=== PATIENT | male | born 1965 | race Caucasian/White ===

== ENCOUNTER 2020-02-14 13:57 | Inpatient (IN) | payer MEDICAID, OTHER ==
[~2020-02-14] VITALS: Ht 188 cm; Wt 91.5 kg
[2020-02-14] MEDS ORDERED: ONDANSETRON 2MG/ML, 2ML IVPush ONE (14:30)
[2020-02-14] MEDS ORDERED: SODIUM CHLORIDE FLUSH 10ML SYR IVF ONE (14:30)
[2020-02-14] MEDS ORDERED: SODIUM CHLORIDE 0.9% 1,000ML IVBOLUS ONE (14:30)
[2020-02-14] MEDS ORDERED: PANTOPRAZOLE 40 MG IV IVPush ONE (14:30)
[2020-02-14] MEDS ORDERED: PANTOPRAZOLE 80 MG in SODIUM CHLORIDE 0.9% 50 ML IVPB ONE (14:36)
[2020-02-14] MEDS ORDERED: PANTOPRAZOLE 80 MG in SODIUM CHLORIDE 0.9% 100 ML IV SCH (14:36)
[2020-02-14] MEDS ORDERED: MORPHINE SULFATE 4 MG/ML, 1ML ONE ×2 (14:43→16:14)
[2020-02-14] MEDS ORDERED: ONDANSETRON 2MG/ML, 2ML ONE (14:43)
[2020-02-14 14:51] LABS: BASOPHILS # (AUTO) 0.04 x10^3/uL (0-0.1); BASOPHILS % (AUTO) 0 % (0-1); EOSINOPHILS # (AUTO) 0.11 x10^3/uL (0-0.4); EOSINOPHILS % (AUTO) 1 % (1-7); LYMPHOCYTES # (AUTO) 2.63 x10^3/uL (1-3.4); LYMPHOCYTES % (AUTO) 25 % (22-44); MD NO; MEAN CORPUSCULAR HEMOGLOBIN 31.3 pg (27.5-34.5); MONOCYTES # (AUTO) 0.86 x10^3/uL (0.2-0.8); MONOCYTES % (AUTO) 8 % (2-9); NEUTROPHILS # (AUTO) 6.81 x10^3/uL (1.8-6.8); NEUTROPHILS % (AUTO) 65 % (42-75); PLATELET COUNT 424 x10^3/uL (130-400); RED BLOOD COUNT 3.79 x10^6/uL (4.38-5.82); RED CELL DISTRIBUTION WIDTH 13.2 % (9.4-14.8)
[2020-02-14 15:01] LABS: ALANINE AMINOTRANSFERASE 25 U/L (12-78); ALBUMIN 2.9 g/dL (3.4-5.0); ANION GAP 7 mmol/L (5-15); CALCIUM 9.8 mg/dL (8.5-10.1); CHLORIDE 100 mmol/L (98-107)
[2020-02-14 15:03] LABS: ALKALINE PHOSPHATASE 40 U/L (45-117); BILIRUBIN,TOTAL 0.5 mg/dL (0.2-1.0); TOTAL PROTEIN 7.1 g/dL (6.4-8.2)
[2020-02-14 15:12] LABS: INTERNATIONAL NORMALIZED RATIO 1.13 (0.93-1.1); PROTHROMBIN TIME 11.7 Seconds (9.6-11.5)
[2020-02-14] MEDS: MORPHINE SULFATE 4 MG/ML, 1ML IVPush PRN ×2 (15:14→16:17)
--- NOTE | 2020-02-14 15:16 | NUR ---
IV STARTED. PT MEDICATED PER EMAR, ORDERED FLUIDS INFUSING. PT IN HOSPITAL GOWN. PT ON VITALS MONITORS. PT GOING TO CT AT THIS TIME.
[2020-02-14] MEDS ORDERED: OMNIPAQUE 350 MG/ML, 100ML BOTTLE ONE (15:28)
[2020-02-14] MEDS ORDERED: ONDANSETRON 2MG/ML, 2ML IVPush PRN (16:30)
[2020-02-14] MEDS ORDERED: POLYETHYLENE GLYCOL 17 GM PACKET PO PRN (16:30)
[2020-02-14] MEDS ORDERED: ONDANSETRON ODT 4 MG PO PRN (16:30)
[2020-02-14] MEDS ORDERED: DOCUSATE 100 MG CAPSULE PO PRN (16:30)
[2020-02-14] MEDS ORDERED: ACETAMINOPHEN 325 MG TABLET PO PRN (16:30)
--- NOTE | 2020-02-14 16:32 | NUR ---
PT UNSURE IF HE TAKES ATENOLOL OR LISINOPRIL AT HOME FOR BLOOD PRESSURE. UNABLE TO UPDATE MED REC COMPLETELY PT CAN'T RECALL HOME MEDS.
[2020-02-14] MEDS ORDERED: MULT-658 PO (16:33)
--- NOTE | 2020-02-14 16:53 | NUR ---
REPORT GIVEN TO JERED STOCK FOR ROOM 342
[2020-02-14] MEDS: PANTOPRAZOLE 80 MG in SODIUM CHLORIDE 0.9% 100 ML IV SCH (18:37)
[2020-02-14] MEDS: LACTATED RINGERS 1,000 ML IV SCH ×2 (18:42→20:23)
[2020-02-14] MEDS: morphine SULFATE 10 MG/ML, 1ML IVPush PRN ×3 (19:37→23:06)
[2020-02-14 19:50] VITALS: BP 125/79
[2020-02-14] MEDS: NICOTINE 21 MG/24 HR PATCH.TD24 TD SCH ×2 (20:30→23:07)
[2020-02-14] MEDS ORDERED: LOSA25TA12 PO (22:45)
[2020-02-15 00:27] VITALS: BP 110/70
[2020-02-15] MEDS: PANTOPRAZOLE 80 MG in SODIUM CHLORIDE 0.9% 100 ML IV SCH ×4 (01:59→23:23)
[2020-02-15] MEDS: morphine SULFATE 10 MG/ML, 1ML IVPush PRN ×6 (02:00→23:10)
[2020-02-15 05:09] LABS: BASOPHILS % (AUTO) 1 % (0-1); EOSINOPHILS % (AUTO) 3 % (1-7); LYMPHOCYTES % (AUTO) 44 % (22-44); MEAN CORPUSCULAR HEMOGLOBIN 32.1 pg (27.5-34.5); MEAN PLATELET VOLUME 8.3 fL (7.4-10.4); MONOCYTES % (AUTO) 7 % (2-9); NEUTROPHILS % (AUTO) 46 % (42-75); PLATELET COUNT 323 x10^3/uL (130-400); RED BLOOD COUNT 3.09 x10^6/uL (4.38-5.82); RED CELL DISTRIBUTION WIDTH 13.4 % (9.4-14.8)
[2020-02-15 05:14] LABS: ALBUMIN 2.3 g/dL (3.4-5.0); ANION GAP 5 mmol/L (5-15); CALCIUM 8.4 mg/dL (8.5-10.1); CHLORIDE 108 mmol/L (98-107)
[2020-02-15 05:18] LABS: % IRON SATURATION 29 % (20-55); ALANINE AMINOTRANSFERASE 16 U/L (12-78); ALKALINE PHOSPHATASE 31 U/L (45-117); BILIRUBIN,TOTAL 0.4 mg/dL (0.2-1.0); CREATININE 1.42 mg/dL (0.7-1.3); IRON LEVEL 50 mcg/dL (65-175); TOTAL IRON BINDING CAPACITY 173 mcg/dL (250-450); TOTAL PROTEIN 5.6 g/dL (6.4-8.2)
[2020-02-15] MEDS: LACTATED RINGERS 1,000 ML IV SCH ×2 (05:36→16:33)
[2020-02-15 07:22] VITALS: BP 103/68
[2020-02-15 09:03] LABS: MD NO
[2020-02-15] MEDS ORDERED: PROMETHAZINE 25 MG/ML, 1ML IVPush PRN (10:00)
[2020-02-15] MEDS ORDERED: HYDROmorphone 1 MG/ML, 1ML INJ IVPush PRN (10:00)
[2020-02-15] MEDS ORDERED: OXYcodone 5 MG/5 ML ORAL.SOL UDC PO PRN (10:00)
[2020-02-15] MEDS ORDERED: FENTANYL PF 100 MCG/2ML IV PRN (10:00)
[2020-02-15] MEDS ORDERED: LABETALOL 5MG/ML, 20ML IV PRN (10:00)
[2020-02-15] MEDS ORDERED: EPHEDRINE 50 MG/ML, 1ML IVPush PRN (10:00)
[2020-02-15] MEDS ORDERED: MEPERIDINE/PF 25MG/0.5ML IVPush PRN (10:00)
[2020-02-15] MEDS ORDERED: ACETAMINOPHEN 325 MG TABLET PO PRN (10:00)
[2020-02-15] MEDS ORDERED: hydrALAzine 20 MG/ML, 1ML IV PRN (10:00)
[2020-02-15] MEDS ORDERED: ONDANSETRON 2MG/ML, 2ML IVPush PRN (10:00)
[2020-02-15] MEDS ORDERED: CHLORHEXIDINE 15 ML UDC ONE (10:47)
[2020-02-15] MEDS ORDERED: CHLORHEXIDINE 15 ML UDC MM ONE (11:00)
[2020-02-15] MEDS ORDERED: PROPOFOL 50 ML ONE (11:04)
[2020-02-15] MEDS ORDERED: HYDROmorphone 1 MG/ML, 1ML INJ ONE (11:50)
[2020-02-15 12:16] VITALS: BP 95/66
[2020-02-15] MEDS: OMEPRAZOLE 20 MG CAPSULE.DR PO SCH (16:36)
[2020-02-15] MEDS: NICOTINE 21 MG/24 HR PATCH.TD24 TD SCH (19:56)
[2020-02-15 20:13] VITALS: BP 104/65
[2020-02-15 21:58] LABS: CREATININE,URINE RANDOM 82.2 mg/dL
[2020-02-16 00:27] VITALS: BP 112/74
[2020-02-16] MEDS: LACTATED RINGERS 1,000 ML IV SCH (02:46)
[2020-02-16] MEDS: morphine SULFATE 10 MG/ML, 1ML IVPush PRN ×2 (02:47→07:40)
[2020-02-16 05:35] LABS: BASOPHILS % (AUTO) 0 % (0-1); EOSINOPHILS % (AUTO) 3 % (1-7); LYMPHOCYTES % (AUTO) 32 % (22-44); MEAN CORPUSCULAR HEMOGLOBIN 31.5 pg (27.5-34.5); MEAN CORPUSCULAR HGB CONC 33.8 g/dL (33.2-36.2); MEAN PLATELET VOLUME 8.4 fL (7.4-10.4); MONOCYTES % (AUTO) 6 % (2-9); NEUTROPHILS % (AUTO) 59 % (42-75); PLATELET COUNT 321 x10^3/uL (130-400); RED BLOOD COUNT 3.05 x10^6/uL (4.38-5.82)
[2020-02-16 05:39] LABS: ANION GAP 5 mmol/L (5-15); CALCIUM 8.3 mg/dL (8.5-10.1); CHLORIDE 109 mmol/L (98-107)
[2020-02-16 05:41] LABS: CREATININE 1.48 mg/dL (0.7-1.3)
[2020-02-16 05:53] LABS: MD NO
[2020-02-16] MEDS: OMEPRAZOLE 20 MG CAPSULE.DR PO SCH (07:36)
[2020-02-16 07:43] VITALS: BP 130/81
[2020-02-16] MEDS: PANTOPRAZOLE 80 MG in SODIUM CHLORIDE 0.9% 100 ML IV SCH (10:06)
[2020-02-16] MEDS ORDERED: OMEP-110 PO (11:05)
[2020-02-16] MEDS ORDERED: SENN1TAB94 PO (11:05)
[2020-02-16] MEDS ORDERED: HYDR-3240 PO (11:05)
[2020-02-16] MEDS ORDERED: SUCR1TAB33 PO (11:05)
[2020-02-16] MEDS ORDERED: HYDROcodone/APAP 5/325 TABLET PO PRN (11:30)
[2020-02-16 14:15] VITALS: BP 113/71
== END 2020-02-16 14:55 | disposition home or self-care (01) | DRG 381 ==
LOC: ED 14:58 → EDIP 16:13 → 3N 18:09 → DCLOUNGE 02-16 14:55
PROVIDERS: ADMIT Family Medicine; ATTEND Family Medicine
PROC: 0DB68ZX Excision of Stomach, Via Natural or Artificial Opening Endoscopic, Diagnostic (ICD-10-PCS; principal; 2020-02-15 10:30)
DX: K22.11 Ulcer of esophagus with bleeding (principal); D62 Acute posthemorrhagic anemia; N17.9 Acute kidney failure, unspecified; K27.4 Chronic or unspecified peptic ulcer, site unspecified, with hemorrhage; I10 Essential (primary) hypertension; L40.9 Psoriasis, unspecified; Z20.828 Contact with and (suspected) exposure to other viral communicable diseases; R00.0 Tachycardia, unspecified
CPT/HCPCS: 36415; 74177; 80048; 80053; 82570; 82728; 83540; 83550; 83605; 83690; 84300; 85014; 85018; 85025; 85610; 86850; 86900; 87635; 88305; 93005; G0378; J1170; J2405; J2704; Q9967; C9113; J2270; J7030; J7120

== ENCOUNTER 2020-04-22 12:13 | Inpatient (IN) | payer MEDICAID ==
[~2020-04-22] VITALS: Ht 188 cm; Wt 95.5 kg
[~2020-04-22 12:13] MED LIST: HYDR-3240 PO; LOSA25TA12 PO; MULT-658 PO; OMEP-110 PO; SENN1TAB94 PO; SUCR1TAB33 PO
[2020-04-22 13:25] LABS: ALANINE AMINOTRANSFERASE 21 U/L (12-78); ALBUMIN 3.7 g/dL (3.4-5.0); ANION GAP 6 mmol/L (5-15); CALCIUM 11.5 mg/dL (8.5-10.1); CHLORIDE 103 mmol/L (98-107); CREATININE 1.59 mg/dL (0.7-1.3)
[2020-04-22 13:27] LABS: ALKALINE PHOSPHATASE 39 U/L (45-117); BILIRUBIN,TOTAL 0.5 mg/dL (0.2-1.0); TOTAL PROTEIN 8.5 g/dL (6.4-8.2)
--- NOTE | 2020-04-22 13:29 | NUR ---
Pt walked back from triage with chief complain to bloody/black stool this am.
[2020-04-22] MEDS ORDERED: ONDANSETRON 2MG/ML, 2ML ONE (13:59)
[2020-04-22] MEDS ORDERED: MORPHINE SULFATE 4 MG/ML, 1ML ONE ×3 (13:59→17:45)
[2020-04-22] MEDS ORDERED: ONDANSETRON 2MG/ML, 2ML IVPush ONE (14:00)
[2020-04-22] MEDS ORDERED: SODIUM CHLORIDE 0.9% 1,000ML IVBOLUS ONE (14:00)
[2020-04-22] MEDS: MORPHINE SULFATE 4 MG/ML, 1ML IVPush PRN ×2 (14:12→15:27)
[2020-04-22 14:13] LABS: BASOPHILS % (AUTO) 0 % (0-1); EOSINOPHILS % (AUTO) 2 % (1-7); LYMPHOCYTES % (AUTO) 17 % (22-44); MEAN CORPUSCULAR HEMOGLOBIN 31.5 pg (27.5-34.5); MEAN CORPUSCULAR HGB CONC 33.4 g/dL (33.2-36.2); MEAN PLATELET VOLUME 8.6 fL (7.4-10.4); MONOCYTES % (AUTO) 7 % (2-9); NEUTROPHILS % (AUTO) 74 % (42-75); PLATELET COUNT 519 x10^3/uL (130-400); RED BLOOD COUNT 4.02 x10^6/uL (4.38-5.82); RED CELL DISTRIBUTION WIDTH 15.1 % (9.4-14.8)
[2020-04-22 14:17] LABS: INTERNATIONAL NORMALIZED RATIO 1.1 (0.93-1.1); MD NO; PROTHROMBIN TIME 11.7 Seconds (9.6-11.5)
--- NOTE | 2020-04-22 14:30 | NUR ---
IV PLACED, MEDICATED PER ORDERS, VSS
[2020-04-22] MEDS ORDERED: PANTOPRAZOLE 80 MG in SODIUM CHLORIDE 0.9% 100 ML IV SCH (15:00)
[2020-04-22] MEDS ORDERED: PANTOPRAZOLE 80 MG in SODIUM CHLORIDE 0.9% 50 ML IVPB ONE (15:00)
[2020-04-22] MEDS ORDERED: SODIUM CHLORIDE FLUSH 10ML SYR IVF ONE (15:00)
--- NOTE | 2020-04-22 15:32 | NUR ---
MEDICATED FOR PAIN, PROTONIX GTT INFUSING
[2020-04-22] MEDS ORDERED: LABETALOL 5MG/ML, 20ML ONE (16:16)
[2020-04-22] MEDS ORDERED: LABETALOL 5MG/ML, 20ML IVPush ONE (16:30)
[2020-04-22] MEDS ORDERED: ONDANSETRON 2MG/ML, 2ML IVPush PRN (17:30)
[2020-04-22] MEDS ORDERED: hydrALAzine 20 MG/ML, 1ML IVPush PRN (17:30)
[2020-04-22] MEDS ORDERED: LABETALOL 5MG/ML, 20ML IVPush PRN (17:30)
[2020-04-22] MEDS ORDERED: SODIUM CHLORIDE 0.9% 1,000 ML IV ONE (17:30)
[2020-04-22] MEDS ORDERED: ENALAPRILAT 1.25 MG/ML, 2ML IVPush PRN (17:30)
[2020-04-22] MEDS: morphine SULFATE 10 MG/ML, 1ML IVPush PRN ×2 (17:58→22:01)
[2020-04-22] MEDS ORDERED: SODIUM CHLORIDE FLUSH 10ML SYR IVF PRN (18:00)
--- NOTE | 2020-04-22 18:19 | NUR ---
PT STATES PAIN IS BETTER, RESTING COMFORTABLE. VSS
--- NOTE | 2020-04-22 18:38 | NUR ---
REPORT TO ARA. SECOND IV PLACED. READY FOR TRANSFER
[2020-04-22 20:57] VITALS: BP 147/90
[2020-04-22] MEDS: LACTATED RINGERS 1,000 ML IV SCH (22:12)
[2020-04-22] MEDS: PANTOPRAZOLE 80 MG in SODIUM CHLORIDE 0.9% 100 ML IV SCH (22:12)
[2020-04-23] MEDS: morphine SULFATE 10 MG/ML, 1ML IVPush PRN ×7 (01:59→21:24)
[2020-04-23 02:27] VITALS: BP 113/75
[2020-04-23 05:58] LABS: BASOPHILS % (AUTO) 0 % (0-1); EOSINOPHILS % (AUTO) 7 % (1-7); LYMPHOCYTES % (AUTO) 30 % (22-44); MEAN CORPUSCULAR HEMOGLOBIN 31.7 pg (27.5-34.5); MEAN PLATELET VOLUME 8.4 fL (7.4-10.4); MONOCYTES % (AUTO) 8 % (2-9); NEUTROPHILS % (AUTO) 55 % (42-75); PLATELET COUNT 334 x10^3/uL (130-400); RED BLOOD COUNT 3.08 x10^6/uL (4.38-5.82); RED CELL DISTRIBUTION WIDTH 15.1 % (9.4-14.8)
[2020-04-23 05:59] LABS: MD NO
[2020-04-23 06:18] LABS: ANION GAP 3 mmol/L (5-15); CALCIUM 9.3 mg/dL (8.5-10.1); CHLORIDE 108 mmol/L (98-107); CREATININE 1.32 mg/dL (0.7-1.3)
[2020-04-23 06:49] VITALS: BP 106/70
[2020-04-23] MEDS: PANTOPRAZOLE 80 MG in SODIUM CHLORIDE 0.9% 100 ML IV SCH ×2 (08:57→18:43)
[2020-04-23] MEDS ORDERED: ONDANSETRON 2MG/ML, 2ML IVPush PRN (11:00)
[2020-04-23] MEDS ORDERED: MIDAZOLAM 1 MG/ML, 2ML IV PRN (11:00)
[2020-04-23] MEDS ORDERED: MEPERIDINE/PF 25MG/0.5ML IVPush PRN (11:00)
[2020-04-23] MEDS ORDERED: ACETAMINOPHEN 325 MG TABLET PO PRN (11:00)
[2020-04-23] MEDS ORDERED: FENTANYL PF 100 MCG/2ML IV PRN (11:00)
[2020-04-23] MEDS ORDERED: OXYcodone 5 MG/5 ML ORAL.SOL UDC PO PRN (11:00)
[2020-04-23] MEDS ORDERED: PROPOFOL 10 MG/ML, 20ML ONE (11:17)
[2020-04-23] MEDS ORDERED: morphine SULFATE 10 MG/ML, 1ML ONE (12:05)
[2020-04-23 12:47] VITALS: BP 116/77
[2020-04-23] MEDS ORDERED: OMNIPAQUE 350 MG/ML, 100ML BOTTLE ONE (13:35)
[2020-04-23 13:54] VITALS: BP 109/72
[2020-04-23] MEDS: NICOTINE 14MG/24 HR PATCH.TD24 TD SCH (18:54)
[2020-04-23 20:18] VITALS: BP 110/69
[2020-04-23] MEDS: LACTATED RINGERS 1,000 ML IV SCH (21:24)
[2020-04-24] MEDS: morphine SULFATE 10 MG/ML, 1ML IVPush PRN ×8 (00:27→23:34)
[2020-04-24 00:48] VITALS: BP 119/82
[2020-04-24] MEDS: PANTOPRAZOLE 80 MG in SODIUM CHLORIDE 0.9% 100 ML IV SCH (03:52)
[2020-04-24 05:29] LABS: ANION GAP 3 mmol/L (5-15); CALCIUM 8.7 mg/dL (8.5-10.1); CHLORIDE 109 mmol/L (98-107)
[2020-04-24 05:32] LABS: BASOPHILS % (AUTO) 1 % (0-1); EOSINOPHILS % (AUTO) 8 % (1-7); LYMPHOCYTES % (AUTO) 25 % (22-44); MEAN CORPUSCULAR HEMOGLOBIN 31.5 pg (27.5-34.5); MEAN CORPUSCULAR HGB CONC 33.7 g/dL (33.2-36.2); MEAN PLATELET VOLUME 8.8 fL (7.4-10.4); MONOCYTES % (AUTO) 8 % (2-9); NEUTROPHILS % (AUTO) 58 % (42-75); PLATELET COUNT 309 x10^3/uL (130-400); RED BLOOD COUNT 3.33 x10^6/uL (4.38-5.82); RED CELL DISTRIBUTION WIDTH 15.1 % (9.4-14.8)
[2020-04-24 05:39] LABS: MD NO
[2020-04-24 07:51] VITALS: BP 110/68
[2020-04-24 12:56] VITALS: BP 100/63
[2020-04-24] MEDS: PANTOPRAZOLE 40 MG IV IVPush SCH (15:25)
[2020-04-24] MEDS: LACTATED RINGERS 1,000 ML IV SCH (16:33)
[2020-04-24] MEDS: NICOTINE 14MG/24 HR PATCH.TD24 TD SCH (18:26)
[2020-04-24 19:55] VITALS: BP 116/77
[2020-04-25 02:13] VITALS: BP 97/62
[2020-04-25] MEDS: morphine SULFATE 10 MG/ML, 1ML IVPush PRN ×6 (02:40→21:03)
[2020-04-25] MEDS: PANTOPRAZOLE 40 MG IV IVPush SCH ×2 (02:40→15:06)
[2020-04-25 05:32] LABS: BASOPHILS % (AUTO) 0 % (0-1); EOSINOPHILS % (AUTO) 8 % (1-7); LYMPHOCYTES % (AUTO) 32 % (22-44); MEAN CORPUSCULAR HEMOGLOBIN 32.4 pg (27.5-34.5); MEAN CORPUSCULAR HGB CONC 34.4 g/dL (33.2-36.2); MEAN PLATELET VOLUME 8.6 fL (7.4-10.4); MONOCYTES % (AUTO) 10 % (2-9); NEUTROPHILS % (AUTO) 51 % (42-75); PLATELET COUNT 326 x10^3/uL (130-400); RED BLOOD COUNT 3.02 x10^6/uL (4.38-5.82); RED CELL DISTRIBUTION WIDTH 14.6 % (9.4-14.8)
[2020-04-25 05:38] LABS: ANION GAP 3 mmol/L (5-15); CALCIUM 8.6 mg/dL (8.5-10.1); CHLORIDE 109 mmol/L (98-107)
[2020-04-25 05:39] LABS: CREATININE 1.51 mg/dL (0.7-1.3)
[2020-04-25 05:40] LABS: MD NO
[2020-04-25 07:36] VITALS: BP 119/76
[2020-04-25] MEDS: LORazepam 2 MG/ML, 1ML IVPush PRN ×4 (09:28→22:16)
[2020-04-25] MEDS: LACTATED RINGERS 1,000 ML IV SCH ×2 (10:34→18:46)
[2020-04-25 13:04] VITALS: BP 128/85
[2020-04-25] MEDS: NICOTINE 14MG/24 HR PATCH.TD24 TD SCH (18:01)
[2020-04-25 21:10] VITALS: BP 142/94
[2020-04-26 02:43] VITALS: BP 144/91
[2020-04-26] MEDS: morphine SULFATE 10 MG/ML, 1ML IVPush PRN ×3 (02:56→18:00)
[2020-04-26] MEDS: PANTOPRAZOLE 40 MG IV IVPush SCH ×2 (03:00→15:53)
[2020-04-26] MEDS: LACTATED RINGERS 1,000 ML IV SCH (05:05)
[2020-04-26] MEDS: LORazepam 2 MG/ML, 1ML IVPush PRN ×2 (05:09→09:38)
[2020-04-26 05:44] LABS: BASOPHILS % (AUTO) 1 % (0-1); EOSINOPHILS % (AUTO) 7 % (1-7); LYMPHOCYTES % (AUTO) 27 % (22-44); MEAN CORPUSCULAR HEMOGLOBIN 31.9 pg (27.5-34.5); MEAN CORPUSCULAR HGB CONC 34.2 g/dL (33.2-36.2); MEAN PLATELET VOLUME 8.4 fL (7.4-10.4); MONOCYTES % (AUTO) 8 % (2-9); NEUTROPHILS % (AUTO) 57 % (42-75); PLATELET COUNT 313 x10^3/uL (130-400); RED BLOOD COUNT 3.08 x10^6/uL (4.38-5.82); RED CELL DISTRIBUTION WIDTH 14.9 % (9.4-14.8)
[2020-04-26 05:48] LABS: MD NO
[2020-04-26 06:08] LABS: ALBUMIN 2.4 g/dL (3.4-5.0); ANION GAP 5 mmol/L (5-15); CALCIUM 8.4 mg/dL (8.5-10.1); CHLORIDE 109 mmol/L (98-107); CREATININE 1.36 mg/dL (0.7-1.3)
[2020-04-26 07:35] VITALS: BP 116/73
[2020-04-26] MEDS ORDERED: FENTANYL PF 250 MCG/5ML ONE (09:46)
[2020-04-26] MEDS ORDERED: MIDAZOLAM 1 MG/ML, 2ML ONE (09:46)
[2020-04-26] MEDS ORDERED: EPINEPHRINE 1 MG/ML, 1ML ONE (10:23)
[2020-04-26] MEDS ORDERED: BUPIVACAINE/PF 0.25% ONE (10:23)
[2020-04-26] MEDS ORDERED: CHLORHEXIDINE 15 ML UDC MM ONE (10:30)
[2020-04-26] MEDS ORDERED: PROPOFOL 10 MG/ML, 20ML ONE (11:03)
[2020-04-26] MEDS ORDERED: SUCCINYLCHOLINE 20 MG/ML, 10ML ONE (11:03)
[2020-04-26] MEDS ORDERED: CEFAZOLIN 1,000 MG ONE (11:03)
[2020-04-26] MEDS ORDERED: ONDANSETRON 2MG/ML, 2ML ONE (11:03)
[2020-04-26] MEDS ORDERED: DEXAMETHASONE 4 MG/ML, 1ML ONE (11:03)
[2020-04-26] MEDS ORDERED: ROCURONIUM 10 MG/ML,10ML ONE (11:03)
[2020-04-26] MEDS ORDERED: SUGAMMADEX 200 MG/2 ML IVPush ONE (11:03)
[2020-04-26] MEDS ORDERED: hydrALAzine 20 MG/ML, 1ML IV PRN (12:00)
[2020-04-26] MEDS ORDERED: ALBUTEROL SULFATE 2.5 MG/3 ML NPPB PRN (12:00)
[2020-04-26] MEDS ORDERED: MEPERIDINE/PF 25MG/0.5ML IVPush PRN (12:00)
[2020-04-26] MEDS ORDERED: PROMETHAZINE 25 MG/ML, 1ML IV PRN (12:00)
[2020-04-26] MEDS ORDERED: LABETALOL 5MG/ML, 20ML IV PRN (12:00)
[2020-04-26] MEDS ORDERED: KETOROLAC 30 MG/1 ML IV PRN (12:00)
[2020-04-26] MEDS ORDERED: OXYcodone 5 MG/5 ML ORAL.SOL UDC PO PRN (12:00)
[2020-04-26] MEDS ORDERED: ONDANSETRON 2MG/ML, 2ML IVPush PRN (12:00)
[2020-04-26] MEDS ORDERED: DIAZEPAM 5 MG/ML, 2ML IV PRN ×2 (12:00)
[2020-04-26] MEDS ORDERED: FENTANYL PF 100 MCG/2ML ONE ×3 (12:37→12:53)
[2020-04-26] MEDS: FENTANYL PF 100 MCG/2ML IV PRN ×5 (12:40→13:08)
[2020-04-26] MEDS ORDERED: HYDROmorphone 1 MG/ML, 1ML INJ ONE ×2 (12:53→14:02)
[2020-04-26] MEDS ORDERED: HYDROmorphone PCA 30 MG/30 ML IV PRN ×2 (13:00→14:53)
[2020-04-26] MEDS: HYDROmorphone 1 MG/ML, 1ML INJ IV PRN ×3 (13:34→14:03)
[2020-04-26 14:54] VITALS: BP 128/89
[2020-04-26] MEDS: KETOROLAC 30 MG/1 ML IV SCH ×2 (15:53→20:56)
[2020-04-26] MEDS: POTASSIUM CHLORIDE 20 MEQ in LACTATED RINGERS 1,000 ML IV SCH (16:38)
[2020-04-26] MEDS: NICOTINE 14MG/24 HR PATCH.TD24 TD SCH (16:38)
[2020-04-26 19:01] VITALS: BP 121/83
[2020-04-27 00:34] VITALS: BP 111/74
[2020-04-27] MEDS: PANTOPRAZOLE 40 MG IV IVPush SCH ×2 (02:54→14:24)
[2020-04-27] MEDS: KETOROLAC 30 MG/1 ML IV SCH ×4 (02:54→20:49)
[2020-04-27] MEDS: POTASSIUM CHLORIDE 20 MEQ in LACTATED RINGERS 1,000 ML IV SCH ×3 (02:54→23:55)
[2020-04-27 05:37] LABS: BASOPHILS % (AUTO) 0 % (0-1); EOSINOPHILS % (AUTO) 1 % (1-7); LYMPHOCYTES % (AUTO) 10 % (22-44); MEAN CORPUSCULAR HEMOGLOBIN 32.4 pg (27.5-34.5); MEAN CORPUSCULAR HGB CONC 34.4 g/dL (33.2-36.2); MEAN PLATELET VOLUME 8.7 fL (7.4-10.4); MONOCYTES % (AUTO) 5 % (2-9); NEUTROPHILS % (AUTO) 84 % (42-75); PLATELET COUNT 292 x10^3/uL (130-400); RED BLOOD COUNT 2.97 x10^6/uL (4.38-5.82); RED CELL DISTRIBUTION WIDTH 14.8 % (9.4-14.8)
[2020-04-27 05:39] LABS: MD NO
[2020-04-27 05:42] LABS: ALANINE AMINOTRANSFERASE 13 U/L (12-78); ALBUMIN 2.1 g/dL (3.4-5.0); ANION GAP 5 mmol/L (5-15); CALCIUM 7.9 mg/dL (8.5-10.1); CHLORIDE 108 mmol/L (98-107); CREATININE 1.92 mg/dL (0.7-1.3)
[2020-04-27 05:44] LABS: ALKALINE PHOSPHATASE 32 U/L (45-117); BILIRUBIN,TOTAL 0.4 mg/dL (0.2-1.0); TOTAL PROTEIN 5.4 g/dL (6.4-8.2)
[2020-04-27] MEDS ORDERED: ENOXAPARIN 40 MG/0.4 ML SQ SCH (06:00)
[2020-04-27] MEDS ORDERED: SODIUM CHLORIDE 0.9% 1,000ML IVBOLUS ONE ×3 (07:00→17:00)
[2020-04-27 08:36] VITALS: BP 108/72
[2020-04-27 12:51] VITALS: BP 110/76
[2020-04-27] MEDS: NICOTINE 14MG/24 HR PATCH.TD24 TD SCH (16:49)
[2020-04-27] MEDS: LORazepam 2 MG/ML, 1ML IVPush PRN (20:39)
[2020-04-27 22:34] VITALS: BP 95/61
[2020-04-28 01:48] VITALS: BP 98/63
[2020-04-28] MEDS: PANTOPRAZOLE 40 MG IV IVPush SCH ×2 (02:43→14:07)
[2020-04-28] MEDS: KETOROLAC 30 MG/1 ML IV SCH (02:43)
[2020-04-28 05:11] LABS: BASOPHILS % (AUTO) 0 % (0-1); EOSINOPHILS % (AUTO) 1 % (1-7); LYMPHOCYTES % (AUTO) 11 % (22-44); MEAN CORPUSCULAR HEMOGLOBIN 32.6 pg (27.5-34.5); MEAN CORPUSCULAR HGB CONC 34.2 g/dL (33.2-36.2); MEAN PLATELET VOLUME 8.5 fL (7.4-10.4); MONOCYTES % (AUTO) 7 % (2-9); NEUTROPHILS % (AUTO) 81 % (42-75); PLATELET COUNT 251 x10^3/uL (130-400); RED BLOOD COUNT 2.65 x10^6/uL (4.38-5.82); RED CELL DISTRIBUTION WIDTH 15.4 % (9.4-14.8)
[2020-04-28 05:19] LABS: MD NO
[2020-04-28 05:23] LABS: ANION GAP 4 mmol/L (5-15); CALCIUM 7.5 mg/dL (8.5-10.1); CHLORIDE 113 mmol/L (98-107)
[2020-04-28 05:24] LABS: CREATININE 2.17 mg/dL (0.7-1.3)
[2020-04-28 07:15] VITALS: BP 102/70
[2020-04-28] MEDS ORDERED: SODIUM CHLORIDE 0.9% 1,000ML IVBOLUS ONE (07:30)
[2020-04-28] MEDS: LORazepam 2 MG/ML, 1ML IVPush PRN (11:21)
[2020-04-28] MEDS: SODIUM CHLORIDE 0.9% 1,000 ML IV SCH ×2 (11:21→20:24)
[2020-04-28 11:39] LABS: BASOPHILS % (AUTO) 0 % (0-1); EOSINOPHILS % (AUTO) 3 % (1-7); LYMPHOCYTES % (AUTO) 11 % (22-44); MEAN CORPUSCULAR HEMOGLOBIN 31.9 pg (27.5-34.5); MEAN CORPUSCULAR HGB CONC 33.5 g/dL (33.2-36.2); MEAN PLATELET VOLUME 8.5 fL (7.4-10.4); MONOCYTES % (AUTO) 6 % (2-9); NEUTROPHILS % (AUTO) 80 % (42-75); PLATELET COUNT 281 x10^3/uL (130-400); RED BLOOD COUNT 2.86 x10^6/uL (4.38-5.82); RED CELL DISTRIBUTION WIDTH 15.7 % (9.4-14.8)
[2020-04-28 11:44] LABS: MD NO
[2020-04-28 12:23] VITALS: BP 122/83
[2020-04-28 13:17] LABS: ANION GAP 4 mmol/L (5-15); CALCIUM 7.5 mg/dL (8.5-10.1); CHLORIDE 113 mmol/L (98-107); CREATININE 2.16 mg/dL (0.7-1.3)
[2020-04-28] MEDS ORDERED: POTASSIUM CHLORIDE 20 MEQ in LACTATED RINGERS 1,000 ML IV SCH (15:00)
[2020-04-28] MEDS: NICOTINE 14MG/24 HR PATCH.TD24 TD SCH (16:23)
[2020-04-28 20:19] VITALS: BP 143/84
[2020-04-29 00:31] VITALS: BP 145/86
[2020-04-29] MEDS: SODIUM CHLORIDE 0.9% 1,000 ML IV SCH ×3 (03:17→20:33)
[2020-04-29] MEDS: PANTOPRAZOLE 40 MG IV IVPush SCH ×2 (03:17→14:45)
[2020-04-29 06:33] LABS: BASOPHILS % (AUTO) 0 % (0-1); EOSINOPHILS % (AUTO) 3 % (1-7); LYMPHOCYTES % (AUTO) 10 % (22-44); MEAN CORPUSCULAR HEMOGLOBIN 32.2 pg (27.5-34.5); MEAN CORPUSCULAR HGB CONC 34.1 g/dL (33.2-36.2); MEAN PLATELET VOLUME 8.8 fL (7.4-10.4); MONOCYTES % (AUTO) 7 % (2-9); NEUTROPHILS % (AUTO) 80 % (42-75); PLATELET COUNT 297 x10^3/uL (130-400); RED BLOOD COUNT 2.85 x10^6/uL (4.38-5.82)
[2020-04-29 06:43] LABS: ALBUMIN 1.8 g/dL (3.4-5.0); ANION GAP 4 mmol/L (5-15); CALCIUM 7.8 mg/dL (8.5-10.1); CHLORIDE 114 mmol/L (98-107)
[2020-04-29 06:47] LABS: ALANINE AMINOTRANSFERASE 14 U/L (12-78); ALKALINE PHOSPHATASE 71 U/L (45-117); BILIRUBIN,TOTAL 0.5 mg/dL (0.2-1.0); CREATININE 1.99 mg/dL (0.7-1.3); TOTAL PROTEIN 5.9 g/dL (6.4-8.2)
[2020-04-29 06:56] LABS: MD NO
[2020-04-29 07:36] VITALS: BP 123/72
[2020-04-29] MEDS: HYDROmorphone PCA 30 MG/30 ML IV PRN (10:04)
[2020-04-29 12:29] VITALS: BP 132/78
[2020-04-29] MEDS: NICOTINE 14MG/24 HR PATCH.TD24 TD SCH (17:48)
[2020-04-29 18:43] VITALS: BP 144/88
[2020-04-30 00:24] VITALS: BP 143/87
[2020-04-30] MEDS: SODIUM CHLORIDE 0.9% 1,000 ML IV SCH ×3 (03:11→23:07)
[2020-04-30] MEDS: PANTOPRAZOLE 40 MG IV IVPush SCH ×2 (03:11→15:06)
[2020-04-30 05:48] LABS: ALBUMIN 1.5 g/dL (3.4-5.0); ANION GAP 5 mmol/L (5-15); BASOPHILS % (AUTO) 0 % (0-1); CALCIUM 7.5 mg/dL (8.5-10.1); CHLORIDE 111 mmol/L (98-107); EOSINOPHILS % (AUTO) 4 % (1-7); LYMPHOCYTES % (AUTO) 11 % (22-44); MD NO; MEAN CORPUSCULAR HEMOGLOBIN 32.2 pg (27.5-34.5); MEAN CORPUSCULAR HGB CONC 33.7 g/dL (33.2-36.2); MEAN PLATELET VOLUME 8.1 fL (7.4-10.4); MONOCYTES % (AUTO) 9 % (2-9); NEUTROPHILS % (AUTO) 76 % (42-75); PLATELET COUNT 324 x10^3/uL (130-400); RED CELL DISTRIBUTION WIDTH 15.1 % (9.4-14.8)
[2020-04-30 05:51] LABS: ALANINE AMINOTRANSFERASE 13 U/L (12-78); ALKALINE PHOSPHATASE 65 U/L (45-117); BILIRUBIN,TOTAL 0.4 mg/dL (0.2-1.0); CREATININE 1.59 mg/dL (0.7-1.3); TOTAL PROTEIN 5.3 g/dL (6.4-8.2)
[2020-04-30] MEDS: HYDROmorphone PCA 30 MG/30 ML IV PRN (06:08)
[2020-04-30 07:23] VITALS: BP 132/81
[2020-04-30] MEDS: LORazepam 2 MG/ML, 1ML IVPush PRN ×2 (10:53→23:06)
[2020-04-30 12:57] VITALS: BP 127/82
[2020-04-30] MEDS: NICOTINE 14MG/24 HR PATCH.TD24 TD SCH (18:06)
[2020-04-30] MEDS: HYDROmorphone 1 MG/ML, 1ML INJ IV PRN ×2 (18:06→21:03)
[2020-04-30 18:49] VITALS: BP 127/82
[2020-05-01] MEDS: HYDROmorphone 1 MG/ML, 1ML INJ IV PRN ×7 (00:13→22:37)
[2020-05-01 00:17] VITALS: BP 129/82
[2020-05-01] MEDS: PANTOPRAZOLE 40 MG IV IVPush SCH ×2 (02:55→15:00)
[2020-05-01] MEDS: LORazepam 2 MG/ML, 1ML IVPush PRN ×4 (04:40→21:03)
[2020-05-01 05:22] LABS: BASOPHILS % (AUTO) 1 % (0-1); EOSINOPHILS % (AUTO) 8 % (1-7); LYMPHOCYTES % (AUTO) 15 % (22-44); MEAN CORPUSCULAR HEMOGLOBIN 31.1 pg (27.5-34.5); MEAN CORPUSCULAR HGB CONC 33.4 g/dL (33.2-36.2); MEAN PLATELET VOLUME 8.2 fL (7.4-10.4); MONOCYTES % (AUTO) 12 % (2-9); NEUTROPHILS % (AUTO) 66 % (42-75); PLATELET COUNT 313 x10^3/uL (130-400); RED BLOOD COUNT 2.64 x10^6/uL (4.38-5.82)
[2020-05-01 05:26] LABS: ALANINE AMINOTRANSFERASE 20 U/L (12-78); ALBUMIN 1.5 g/dL (3.4-5.0); ANION GAP 5 mmol/L (5-15); CALCIUM 7.6 mg/dL (8.5-10.1); CHLORIDE 111 mmol/L (98-107); CREATININE 1.32 mg/dL (0.7-1.3)
[2020-05-01 05:29] LABS: ALKALINE PHOSPHATASE 80 U/L (45-117); BILIRUBIN,TOTAL 0.2 mg/dL (0.2-1.0); TOTAL PROTEIN 5.2 g/dL (6.4-8.2)
[2020-05-01 06:46] LABS: MD NO
[2020-05-01 06:50] VITALS: BP 148/88
[2020-05-01 07:42] VITALS: BP 130/86
[2020-05-01] MEDS: METOCLOPRAMIDE 5 MG/ML, 2ML IVPush SCH ×3 (10:15→21:03)
[2020-05-01] MEDS: SODIUM CHLORIDE 0.9% 1,000 ML IV SCH (12:29)
[2020-05-01] MEDS: OXYcodone 5 MG/5 ML ORAL.SOL UDC PO PRN ×3 (12:31→21:04)
[2020-05-01 13:25] VITALS: BP 134/83
[2020-05-01] MEDS: NICOTINE 14MG/24 HR PATCH.TD24 TD SCH (17:03)
[2020-05-01 19:25] VITALS: BP 151/97
[2020-05-02 01:02] VITALS: BP 129/80
[2020-05-02] MEDS: SODIUM CHLORIDE 0.9% 1,000 ML IV SCH ×2 (01:40→15:00)
[2020-05-02] MEDS: HYDROmorphone 1 MG/ML, 1ML INJ IV PRN ×3 (02:59→12:26)
[2020-05-02] MEDS: PANTOPRAZOLE 40 MG IV IVPush SCH ×2 (02:59→15:46)
[2020-05-02] MEDS: METOCLOPRAMIDE 5 MG/ML, 2ML IVPush SCH ×4 (04:01→21:51)
[2020-05-02 04:54] LABS: BASOPHILS % (AUTO) 1 % (0-1); EOSINOPHILS % (AUTO) 5 % (1-7); LYMPHOCYTES % (AUTO) 14 % (22-44); MEAN CORPUSCULAR HEMOGLOBIN 31.5 pg (27.5-34.5); MEAN CORPUSCULAR HGB CONC 33.9 g/dL (33.2-36.2); MEAN PLATELET VOLUME 8.1 fL (7.4-10.4); MONOCYTES % (AUTO) 11 % (2-9); NEUTROPHILS % (AUTO) 69 % (42-75); PLATELET COUNT 335 x10^3/uL (130-400); RED BLOOD COUNT 2.61 x10^6/uL (4.38-5.82); RED CELL DISTRIBUTION WIDTH 14.7 % (9.4-14.8)
[2020-05-02 04:55] LABS: ALBUMIN 1.4 g/dL (3.4-5.0); ANION GAP 3 mmol/L (5-15); CALCIUM 7.6 mg/dL (8.5-10.1); CHLORIDE 110 mmol/L (98-107)
[2020-05-02 04:58] LABS: ALANINE AMINOTRANSFERASE 15 U/L (12-78); ALKALINE PHOSPHATASE 68 U/L (45-117); BILIRUBIN,TOTAL 0.8 mg/dL (0.2-1.0); TOTAL PROTEIN 4.9 g/dL (6.4-8.2)
[2020-05-02 04:59] LABS: MD NO
[2020-05-02] MEDS: OXYcodone 5 MG/5 ML ORAL.SOL UDC PO PRN ×5 (05:32→23:45)
[2020-05-02 07:07] VITALS: BP 138/87
[2020-05-02 12:50] VITALS: BP 152/90
[2020-05-02] MEDS: NICOTINE 14MG/24 HR PATCH.TD24 TD SCH (18:02)
[2020-05-02 18:52] VITALS: BP 137/83
[2020-05-03 00:50] VITALS: BP 149/95
[2020-05-03] MEDS: OXYcodone 5 MG/5 ML ORAL.SOL UDC PO PRN ×5 (03:53→23:24)
[2020-05-03] MEDS: METOCLOPRAMIDE 5 MG/ML, 2ML IVPush SCH ×4 (03:53→21:21)
[2020-05-03] MEDS: PANTOPRAZOLE 40 MG IV IVPush SCH ×2 (03:53→14:38)
[2020-05-03] MEDS: SODIUM CHLORIDE 0.9% 1,000 ML IV SCH (03:59)
[2020-05-03 04:40] LABS: BASOPHILS % (AUTO) 1 % (0-1); EOSINOPHILS % (AUTO) 5 % (1-7); LYMPHOCYTES % (AUTO) 20 % (22-44); MEAN CORPUSCULAR HEMOGLOBIN 31.7 pg (27.5-34.5); MEAN CORPUSCULAR HGB CONC 34.1 g/dL (33.2-36.2); MEAN PLATELET VOLUME 7.5 fL (7.4-10.4); MONOCYTES % (AUTO) 11 % (2-9); NEUTROPHILS % (AUTO) 64 % (42-75); PLATELET COUNT 371 x10^3/uL (130-400); RED BLOOD COUNT 2.78 x10^6/uL (4.38-5.82); RED CELL DISTRIBUTION WIDTH 14.7 % (9.4-14.8)
[2020-05-03 04:54] LABS: CHLORIDE 111 mmol/L (98-107)
[2020-05-03 05:00] LABS: ANION GAP 6 mmol/L (5-15); CALCIUM 7.9 mg/dL (8.5-10.1); CREATININE 1.22 mg/dL (0.7-1.3)
[2020-05-03 05:04] LABS: MD NO
[2020-05-03 06:34] VITALS: BP 124/79
[2020-05-03] MEDS: ACETAMINOPHEN 325 MG TABLET PO PRN (12:19)
[2020-05-03 14:17] VITALS: BP 128/79
[2020-05-03] MEDS: NICOTINE 14MG/24 HR PATCH.TD24 TD SCH (15:37)
[2020-05-03 18:32] VITALS: BP 147/90
[2020-05-04 00:30] VITALS: BP 152/91
[2020-05-04] MEDS: OXYcodone 5 MG/5 ML ORAL.SOL UDC PO PRN ×2 (03:26→08:42)
[2020-05-04] MEDS: METOCLOPRAMIDE 5 MG/ML, 2ML IVPush SCH ×4 (03:27→21:37)
[2020-05-04] MEDS: PANTOPRAZOLE 40 MG IV IVPush SCH ×2 (03:27→13:36)
[2020-05-04 05:55] LABS: BASOPHILS % (AUTO) 1 % (0-1); EOSINOPHILS % (AUTO) 5 % (1-7); LYMPHOCYTES % (AUTO) 18 % (22-44); MEAN CORPUSCULAR HEMOGLOBIN 31.4 pg (27.5-34.5); MEAN CORPUSCULAR HGB CONC 34.4 g/dL (33.2-36.2); MEAN PLATELET VOLUME 7.1 fL (7.4-10.4); MONOCYTES % (AUTO) 9 % (2-9); NEUTROPHILS % (AUTO) 68 % (42-75); PLATELET COUNT 398 x10^3/uL (130-400); RED BLOOD COUNT 2.62 x10^6/uL (4.38-5.82); RED CELL DISTRIBUTION WIDTH 14.6 % (9.4-14.8)
[2020-05-04 06:05] LABS: CALCIUM 7.8 mg/dL (8.5-10.1); CREATININE 1.24 mg/dL (0.7-1.3)
[2020-05-04 06:18] LABS: MD NO
[2020-05-04 06:29] LABS: ANION GAP 3 mmol/L (5-15); CHLORIDE 108 mmol/L (98-107)
[2020-05-04 07:09] VITALS: BP 163/96
[2020-05-04 13:25] VITALS: BP 154/100
[2020-05-04] MEDS: HYDROcodone/APAP 5/325 TABLET PO PRN ×3 (13:36→21:35)
[2020-05-04] MEDS: NICOTINE 14MG/24 HR PATCH.TD24 TD SCH (15:47)
[2020-05-04 18:44] VITALS: BP 152/91
[2020-05-05 01:40] VITALS: BP 149/79
[2020-05-05] MEDS: HYDROcodone/APAP 5/325 TABLET PO PRN ×6 (01:49→23:18)
[2020-05-05] MEDS: PANTOPRAZOLE 40 MG IV IVPush SCH (02:04)
[2020-05-05] MEDS: METOCLOPRAMIDE 5 MG/ML, 2ML IVPush SCH ×4 (02:05→20:20)
[2020-05-05 06:57] VITALS: BP 161/84
[2020-05-05 12:26] VITALS: BP 145/95
[2020-05-05] MEDS: PANTOPRAZOLE 40MG TABLET PO SCH (13:33)
[2020-05-05] MEDS: NICOTINE 14MG/24 HR PATCH.TD24 TD SCH (17:05)
[2020-05-05 20:14] VITALS: BP 168/87
[2020-05-05] MEDS: ACETAMINOPHEN 325 MG TABLET PO PRN (20:20)
[2020-05-06 03:09] VITALS: BP 160/79
[2020-05-06] MEDS: HYDROcodone/APAP 5/325 TABLET PO PRN ×3 (03:11→12:05)
[2020-05-06] MEDS: PANTOPRAZOLE 40MG TABLET PO SCH (03:11)
[2020-05-06] MEDS: METOCLOPRAMIDE 5 MG/ML, 2ML IVPush SCH ×2 (03:12→10:27)
[2020-05-06 07:13] VITALS: BP 163/92
[2020-05-06] MEDS ORDERED: OMEP-110 PO (10:40)
[2020-05-06] MEDS ORDERED: NICO-486 TD (10:40)
[2020-05-06] MEDS ORDERED: HYDR-3240 PO (10:40)
[2020-05-06] MEDS ORDERED: SENN1TAB94 PO (10:40)
== END 2020-05-06 13:00 | disposition home or self-care (01) | DRG 327 ==
LOC: ED 14:22 → EDIP 17:10 → 5SO 18:53 → 3N 04-28 11:53 → DCLOUNGE 05-06 12:43
PROVIDERS: ADMIT Hospitalist; ATTEND Hospitalist
PROC: 0DJ08ZZ Inspection of Upper Intestinal Tract, Via Natural or Artificial Opening Endoscopic (ICD-10-PCS; 2020-04-23)
PROC: 0D160ZA Bypass Stomach to Jejunum, Open Approach (ICD-10-PCS; principal; 2020-04-26 10:30)
DX: K26.4 Chronic or unspecified duodenal ulcer with hemorrhage (principal); K31.5 Obstruction of duodenum; D64.9 Anemia, unspecified; E83.52 Hypercalcemia; F41.9 Anxiety disorder, unspecified; I13.10 Hypertensive heart and chronic kidney disease without heart failure, with stage 1 through stage 4 chronic kidney disease, or unspecified chronic kidney disease; I16.0 Hypertensive urgency; K22.70 Barrett's esophagus without dysplasia; K25.9 Gastric ulcer, unspecified as acute or chronic, without hemorrhage or perforation; N18.2 Chronic kidney disease, stage 2 (mild); Z20.828 Contact with and (suspected) exposure to other viral communicable diseases; K31.9 Disease of stomach and duodenum, unspecified; N50.89 Other specified disorders of the male genital organs; Z87.19 Personal history of other diseases of the digestive system; Z87.891 Personal history of nicotine dependence
CPT/HCPCS: 36415; 71045; 74177; 76870; 80048; 80053; 80069; 83690; 85014; 85018; 85025; 85610; 85730; 86850; 86900; 87635; 93306; 96374; 96375; 96376; 99285; G0378; J0171; J0690; J1100; J1170; J1650; J1885; J2250; J2405; J2704; J3010; J3480; Q9967; C1765; C9113; J0330; J2060; J2270; J2765; J7030; J7120

== ENCOUNTER 2020-07-19 12:28 | Emergency (ER) | payer MEDICAID ==
[~2020-07-19] VITALS: Ht 188 cm; Wt 79.7 kg
[~2020-07-19 12:28] MED LIST changes: +HYDR-1067 PO; -HYDR-3240 PO; +NICO-486 TD
--- NOTE | 2020-07-19 12:53 | NUR ---
PT C/O LEFT SIDE CHEST PAIN THAT RADIATES TO HIS BACK, PAIN 12/20. PT DENIES SOB, N/V, OR SAINZ. PT STATES THE PAIN STARTE SUDDENLY WHEN HE WOKE UP. PT STATES IT HURTS MORE WHEN HE BRATHES IN. PT ALSO HAS SOME DISCHARGE FROM A SURGICAL SITE ON HIS ABD FROM SURGERY IN APRIL 2020. PT IS CONCERNED HE MAY HAVE PNEUMONIA.
[2020-07-19 13:29] LABS: BASOPHILS % (AUTO) 1 % (0-1); EOSINOPHILS % (AUTO) 1 % (1-7); LYMPHOCYTES % (AUTO) 19 % (22-44); MD NO; MEAN CORPUSCULAR HEMOGLOBIN 29.9 pg (27.5-34.5); MEAN CORPUSCULAR HGB CONC 33.1 g/dL (33.2-36.2); MEAN PLATELET VOLUME 7.1 fL (7.4-10.4); MONOCYTES % (AUTO) 8 % (2-9); NEUTROPHILS % (AUTO) 72 % (42-75); PLATELET COUNT 499 x10^3/uL (130-400); RED BLOOD COUNT 2.99 x10^6/uL (4.38-5.82); RED CELL DISTRIBUTION WIDTH 17.4 % (9.4-14.8)
[2020-07-19] MEDS ORDERED: SODIUM CHLORIDE FLUSH 10ML SYR IVF ONE (13:30)
[2020-07-19 13:40] LABS: ALANINE AMINOTRANSFERASE 13 U/L (12-78); ALBUMIN 2.6 g/dL (3.4-5.0); ANION GAP 5 mmol/L (5-15); CALCIUM 8.2 mg/dL (8.5-10.1); CHLORIDE 105 mmol/L (98-107)
[2020-07-19 13:42] LABS: ALKALINE PHOSPHATASE 54 U/L (45-117); BILIRUBIN,TOTAL 0.2 mg/dL (0.2-1.0); TOTAL PROTEIN 6.9 g/dL (6.4-8.2)
--- NOTE | 2020-07-19 13:58 | NUR ---
PT OFF THE FLOOR TO CT
[2020-07-19] MEDS ORDERED: OMNIPAQUE 350 MG/ML, 100ML BOTTLE ONE (14:04)
--- NOTE | 2020-07-19 14:53 | NUR ---
BREAK RN: PT RESTING ON [facility] W/ CALL LIGHT IN REACH AND SIDE RAILS UPX2. RESP EVEN AND UNLABORED, [place]. ALL TESTS RESULTED. PT IS UP FOR RECHECK AT THIS TIME.
[2020-07-19] MEDS ORDERED: MORPHINE SULFATE 4 MG/ML, 1ML IVPush PRN (15:00)
--- NOTE | 2020-07-19 15:06 | NUR ---
BREAK RN: PT DRINKING PO CONTRAST PROVIDED BY SOFIE FROM RAD.
[2020-07-19] MEDS ORDERED: MORPHINE SULFATE 4 MG/ML, 1ML ONE (15:11)
[2020-07-19] MEDS ORDERED: ONDANSETRON 2MG/ML, 2ML ONE (15:11)
--- NOTE | 2020-07-19 15:17 | NUR ---
BREAK RN: PT REFUSED CT TIL MEDICATED, PT MEDICATED PER EMAR. CT CALLED. Addendum: 07/19/20 at 1518 by [email or web address] BREAK RN: PT REFUSED RAD TIL MEDICATED, PT MEDICATED PER EMAR. RAD CALLED.
--- NOTE | 2020-07-19 15:24 | NUR ---
PT OFF THE FLOOR FOR UPPER GI
[2020-07-19] MEDS ORDERED: OMNIPAQUE 350 MG/ML, 150 ML BOTTLE ONE (15:59)
[2020-07-19] MEDS ORDERED: ONDANSETRON 2MG/ML, 2ML IVPush ONE (16:00)
[2020-07-19 16:33] VITALS: BP 122/92
--- NOTE | 2020-07-19 16:33 | NUR ---
PT REC'VD DISHRGE INSTRUCTIONS AND EDUCATION. PT HAD NO FURTHER QUSTIONS.
== END 2020-07-19 16:46 | disposition home or self-care (01) ==
LOC: ED 16:30
DX: R10.13 Epigastric pain (principal); R07.81 Pleurodynia; I10 Essential (primary) hypertension
CPT/HCPCS: 36415; 71046; 74177; 74240; 80053; 83690; 85025; 93005; 96374; 96375; 99285; J2270; J2405; Q9967

== ENCOUNTER 2020-10-09 13:34 | Emergency (ER) | payer MEDICAID ==
[~2020-10-09] VITALS: Ht 188 cm; Wt 80.2 kg
[~2020-10-09 13:34] MED LIST changes: -HYDR-1067 PO; +HYDR-2214 PO
[2020-10-09] MEDS ORDERED: SODIUM CHLORIDE FLUSH 10ML SYR IVF ONE (14:00)
[2020-10-09] MEDS ORDERED: MAALOX/HYOSCYAMINE/LIDOCAINE 45 ML BTL PO ONE (14:00)
[2020-10-09 14:10] LABS: BASOPHILS % (AUTO) 1 % (0-1); EOSINOPHILS % (AUTO) 1 % (1-7); LYMPHOCYTES % (AUTO) 15 % (22-44); MEAN CORPUSCULAR HGB CONC 33.7 g/dL (33.2-36.2); MEAN PLATELET VOLUME 6.9 fL (7.4-10.4); MONOCYTES % (AUTO) 6 % (2-9); NEUTROPHILS % (AUTO) 78 % (42-75); PLATELET COUNT 655 x10^3/uL (130-400); RED BLOOD COUNT 2.43 x10^6/uL (4.38-5.82); RED CELL DISTRIBUTION WIDTH 16.3 % (9.4-14.8)
[2020-10-09 14:17] LABS: ALANINE AMINOTRANSFERASE 23 U/L (12-78); ALBUMIN 2.7 g/dL (3.4-5.0); ANION GAP 5 mmol/L (5-15); CALCIUM 10.4 mg/dL (8.5-10.1); CHLORIDE 102 mmol/L (98-107); CREATININE 1.57 mg/dL (0.7-1.3)
[2020-10-09 14:22] LABS: ALKALINE PHOSPHATASE 92 U/L (45-117); BILIRUBIN,TOTAL 0.2 mg/dL (0.2-1.0); TOTAL PROTEIN 7.5 g/dL (6.4-8.2); TROPONIN I 0.053 ng/mL (0.000-0.045)
[2020-10-09] MEDS ORDERED: SODIUM CHLORIDE 0.9% 1,000 ML IV ONE (14:30)
[2020-10-09 14:42] LABS: MD NO
--- NOTE | 2020-10-09 14:43 | NUR ---
This RN at bedside with provider for rectal exam.
[2020-10-09] MEDS ORDERED: ASPIRIN 81 MG TABLET CHEW PO ONE (15:00)
[2020-10-09] MEDS ORDERED: MORPHINE SULFATE 4 MG/ML, 1ML IVPush PRN (15:00)
[2020-10-09] MEDS ORDERED: ONDANSETRON 2MG/ML, 2ML IVPush ONE (15:00)
[2020-10-09] MEDS ORDERED: ONDANSETRON 2MG/ML, 2ML ONE (15:07)
[2020-10-09] MEDS ORDERED: MORPHINE SULFATE 4 MG/ML, 1ML ONE (15:08)
[2020-10-09] MEDS ORDERED: MAALOX/HYOSCYAMINE/LIDOCAINE 45 ML BTL ONE (15:21)
--- NOTE | 2020-10-09 15:41 | NUR ---
MD Calixto to bedside.
[2020-10-09 16:18] VITALS: BP 160/90
== END 2020-10-09 16:21 | disposition home or self-care (01) ==
LOC: ED 13:55
DX: K25.0 Acute gastric ulcer with hemorrhage (principal); D53.9 Nutritional anemia, unspecified; R10.12 Left upper quadrant pain; N28.9 Disorder of kidney and ureter, unspecified; R07.89 Other chest pain; K21.9 Gastro-esophageal reflux disease without esophagitis; I10 Essential (primary) hypertension
CPT/HCPCS: 36415; 71045; 80053; 84484; 85025; 86850; 86900; 93005; 96361; 96374; 99285; J2270; J7030

== ENCOUNTER 2020-10-21 10:07 | Inpatient (IN) | payer MEDICAID ==
[2020-10-21] VITALS (8 sets, daily range): BP systolic 136–155; BP diastolic 68–99
[~2020-10-21] VITALS: Ht 188 cm; Wt 85.1 kg
--- NOTE | 2020-10-21 11:33 | NUR ---
PT PLACED ON HEART MONITOR, BP CUFF, PULSE OX. VSS AT THIS TIME. CALL LIGHT WITHIN REACH. WARM BLANKET OFFERED, URINAL PROVIDED. PT DENIES PAIN AT THIS TIME. PT DENIES GI BLEEDING, TAKING OMEPRAZOLE Q12 PRESCRIBED. PT REPORTS FATIGUE AND SOME SOB SINCE SEEN HERE LAST FOR CP ON 10/09/20.
--- NOTE | 2020-10-21 11:49 | NUR ---
DR BOWMAN IN TO SEE PT.
[2020-10-21 12:18] LABS: BASOPHILS % (AUTO) 1 % (0-1); EOSINOPHILS % (AUTO) 2 % (1-7); LYMPHOCYTES % (AUTO) 26 % (22-44); MEAN CORPUSCULAR HEMOGLOBIN 28.6 pg (27.5-34.5); MEAN CORPUSCULAR HGB CONC 33.8 g/dL (33.2-36.2); MEAN PLATELET VOLUME 6.7 fL (7.4-10.4); MONOCYTES % (AUTO) 6 % (2-9); NEUTROPHILS % (AUTO) 66 % (42-75); PLATELET COUNT 480 x10^3/uL (130-400); RED BLOOD COUNT 2.46 x10^6/uL (4.38-5.82); RED CELL DISTRIBUTION WIDTH 16.3 % (9.4-14.8)
[2020-10-21 12:26] LABS: ALANINE AMINOTRANSFERASE 14 U/L (12-78); ALBUMIN 2.3 g/dL (3.4-5.0); ANION GAP 4 mmol/L (5-15); CALCIUM 7.8 mg/dL (8.5-10.1); CHLORIDE 108 mmol/L (98-107); CREATININE 1.42 mg/dL (0.7-1.3)
[2020-10-21 12:28] LABS: ALKALINE PHOSPHATASE 50 U/L (45-117); BILIRUBIN,TOTAL 0.2 mg/dL (0.2-1.0); TOTAL PROTEIN 6.1 g/dL (6.4-8.2)
[2020-10-21 12:42] LABS: ANISOCYTOSIS 1+; OVALOCYTES 1+
[2020-10-21 12:43] LABS: <PLATELET ESTIMATE> INCREASED; MICROCYTOSIS 1+
[2020-10-21 12:44] LABS: SMALL PLATELETS 1+
[2020-10-21] MEDS ORDERED: ACETAMINOPHEN 500 MG TABLET ONE (13:21)
--- NOTE | 2020-10-21 13:25 | NUR ---
IV PLACED. CONSENT FOR TRANSFUSION SIGNED AND ON CHART. PT RESTING COMFORTABLY, C/O SLIGHT SORENESS TO L ARM D/T STRAIN FROM WORK. TYLENOL GIVEN PER ERP ORDER. CALL LIGHT WITHIN REACH, LIGHTS DIMMED. AWAITING ADMIT BED. MED REC COMPLETED.
[2020-10-21] MEDS ORDERED: OMEP40CA8 PO (13:28)
[2020-10-21] MEDS ORDERED: PANTOPRAZOLE 40 MG IV IVPush SCH (13:30)
[2020-10-21] MEDS ORDERED: ACETAMINOPHEN 500 MG TABLET PO ONE (14:00)
--- NOTE | 2020-10-21 14:23 | NUR ---
PT SLEEPING, NAD. AWAITING BLOOD FOR TRANSFUSION AND ADMIT BED.
[2020-10-21] MEDS ORDERED: PANTOPRAZOLE 40 MG IV ONE (14:28)
--- NOTE | 2020-10-21 15:40 | NUR ---
CALL TO BLOOD BANK TO INQUIRE ON WHEN BLOOD WILL BE AVAILABLE. PER BLOOD BANK, 1ST UNIT AVAILABLE.
--- NOTE | 2020-10-21 15:43 | NUR ---
ADMIT BED AVAILABLE. PT TO BE TRANPORTED TO FLOOR WITH 1ST UNIT [facility] TO BE STARTED THERE. ATTEMPT TO CALL REPORT.
--- NOTE | 2020-10-21 16:04 | NUR ---
2ND ATTEMPT TO CALL REPORT.
--- NOTE | 2020-10-21 16:12 | NUR ---
REPORT TO MAREK MASON READY FOR TRANSPORT TO FLOOR.
[2020-10-21] MEDS ORDERED: MORPHINE SULFATE 4 MG/ML, 1ML IVPush ONE (18:30)
[2020-10-21] MEDS ORDERED: MELATONIN 5 MG TABLET PO PRN ×2 (19:00)
[2020-10-21] MEDS ORDERED: HYDROcodone/APAP 5/325 TABLET PO PRN (19:00)
[2020-10-21] MEDS ORDERED: BISACODYL 10 MG SUPP PR PRN (19:00)
[2020-10-21] MEDS ORDERED: POLYETHYLENE GLYCOL 17 GM PACKET PO PRN ×2 (19:00)
[2020-10-21] MEDS ORDERED: morphine SULFATE 10 MG/ML, 1ML IVPush PRN (19:00)
[2020-10-21] MEDS ORDERED: ACETAMINOPHEN 325 MG TABLET PO PRN (19:00)
[2020-10-21] MEDS ORDERED: DOCUSATE 100 MG CAPSULE PO PRN (19:00)
[2020-10-21] MEDS ORDERED: LORazepam 1MG TABLET PO PRN ×2 (19:00)
[2020-10-21] MEDS ORDERED: ONDANSETRON 2MG/ML, 2ML IV PRN (19:00)
[2020-10-21] MEDS ORDERED: ACETAMINOPHEN 325 MG TABLET PO ONE (19:00)
[2020-10-21] MEDS: morphine SULFATE 10 MG/ML, 1ML IVPush PRN (21:38)
[2020-10-21] MEDS: NICOTINE 21 MG/24 HR PATCH.TD24 TD SCH (23:38)
[2020-10-22] VITALS (7 sets, daily range): BP systolic 133–161; BP diastolic 82–101
[2020-10-22] MEDS: morphine SULFATE 10 MG/ML, 1ML IVPush PRN ×4 (00:49→14:03)
[2020-10-22] MEDS: SODIUM CHLORIDE 0.9% 1,000 ML IV SCH ×2 (01:27→17:33)
[2020-10-22 06:45] LABS: BASOPHILS % (AUTO) 1 % (0-1); EOSINOPHILS % (AUTO) 3 % (1-7); LYMPHOCYTES % (AUTO) 29 % (22-44); MEAN CORPUSCULAR HEMOGLOBIN 28.8 pg (27.5-34.5); MEAN CORPUSCULAR HGB CONC 33.7 g/dL (33.2-36.2); MEAN PLATELET VOLUME 6.7 fL (7.4-10.4); MONOCYTES % (AUTO) 7 % (2-9); NEUTROPHILS % (AUTO) 60 % (42-75); PLATELET COUNT 463 x10^3/uL (130-400); RED BLOOD COUNT 3.35 x10^6/uL (4.38-5.82); RED CELL DISTRIBUTION WIDTH 16.2 % (9.4-14.8)
[2020-10-22 06:57] LABS: ALANINE AMINOTRANSFERASE 15 U/L (12-78); ALBUMIN 2.1 g/dL (3.4-5.0); ANION GAP 6 mmol/L (5-15); CALCIUM 7.9 mg/dL (8.5-10.1); CHLORIDE 112 mmol/L (98-107)
[2020-10-22 07:02] LABS: ALKALINE PHOSPHATASE 45 U/L (45-117); BILIRUBIN,TOTAL 0.6 mg/dL (0.2-1.0); CHOLESTEROL, TOTAL 92 mg/dL (140-239); CREATININE 1.22 mg/dL (0.7-1.3); HDL CHOL % 25 % (26-37); HDL CHOLESTEROL (DIRECT) 23 mg/dL (40-60); LDL CHOLESTEROL,CALCULATED 54 mg/dL (54-169); LDL/HDL RATIO 2.3 (0.5-3.0); TOTAL PROTEIN 5.8 g/dL (6.4-8.2); TRIGLYCERIDES 76 mg/dL (50-200); VLDL CHOLESTEROL 15 mg/dL (0-25)
[2020-10-22] MEDS ORDERED: PROPOFOL 50 ML ONE (09:41)
[2020-10-22] MEDS ORDERED: OXYcodone 5 MG/5 ML ORAL.SOL UDC ONE (10:10)
[2020-10-22] MEDS ORDERED: PROMETHAZINE 25 MG/ML, 1ML IVPush PRN (10:30)
[2020-10-22] MEDS ORDERED: FENTANYL PF 100 MCG/2ML IV PRN (10:30)
[2020-10-22] MEDS ORDERED: LABETALOL 5MG/ML, 20ML IV PRN (10:30)
[2020-10-22] MEDS ORDERED: OXYcodone 5 MG/5 ML ORAL.SOL UDC PO PRN (10:30)
[2020-10-22] MEDS ORDERED: LORazepam 2 MG/ML, 1ML IVPush PRN (10:30)
[2020-10-22] MEDS ORDERED: EPHEDRINE 50 MG/ML, 1ML IVPush PRN (10:30)
[2020-10-22] MEDS ORDERED: ACETAMINOPHEN 325 MG TABLET PO PRN (10:30)
[2020-10-22] MEDS ORDERED: METHOCARBAMOL 1,000 MG in DEXTROSE 5% 100 ML IV PRN (10:30)
[2020-10-22] MEDS ORDERED: hydrALAzine 20 MG/ML, 1ML IV PRN (10:30)
[2020-10-22] MEDS ORDERED: HYDROmorphone 1 MG/ML, 1ML INJ IVPush PRN (10:30)
[2020-10-22] MEDS ORDERED: ONDANSETRON 2MG/ML, 2ML IVPush PRN (10:30)
[2020-10-22] MEDS: SUCRALFATE 1 GM/10 ML UDC PO SCH ×3 (11:03→21:20)
[2020-10-22] MEDS: OMEPRAZOLE 20 MG CAPSULE.DR PO SCH ×2 (11:03→21:20)
[2020-10-22] MEDS ORDERED: MORPHINE SULFATE 4 MG/ML, 1ML IVPush PRN (15:30)
[2020-10-22] MEDS: HYDROcodone/APAP 5/325 TABLET PO PRN ×2 (17:37→21:20)
[2020-10-22] MEDS: NICOTINE 21 MG/24 HR PATCH.TD24 TD SCH (22:37)
[2020-10-23 01:32] VITALS: BP 162/93
[2020-10-23] MEDS: HYDROcodone/APAP 5/325 TABLET PO PRN ×3 (01:34→11:52)
[2020-10-23] MEDS: SODIUM CHLORIDE 0.9% 1,000 ML IV SCH (06:07)
[2020-10-23] MEDS: SUCRALFATE 1 GM/10 ML UDC PO SCH ×3 (06:07→16:39)
[2020-10-23 07:16] VITALS: BP 168/101
[2020-10-23 07:17] LABS: BASOPHILS % (AUTO) 1 % (0-1); EOSINOPHILS % (AUTO) 2 % (1-7); LYMPHOCYTES % (AUTO) 21 % (22-44); MEAN CORPUSCULAR HEMOGLOBIN 28.4 pg (27.5-34.5); MEAN CORPUSCULAR HGB CONC 32.7 g/dL (33.2-36.2); MEAN PLATELET VOLUME 6.9 fL (7.4-10.4); MONOCYTES % (AUTO) 6 % (2-9); NEUTROPHILS % (AUTO) 70 % (42-75); PLATELET COUNT 432 x10^3/uL (130-400); RED BLOOD COUNT 3.74 x10^6/uL (4.38-5.82); RED CELL DISTRIBUTION WIDTH 16.4 % (9.4-14.8)
[2020-10-23 07:18] LABS: ANION GAP 5 mmol/L (5-15); CHLORIDE 112 mmol/L (98-107); CREATININE 1.12 mg/dL (0.7-1.3)
[2020-10-23] MEDS: OMEPRAZOLE 20 MG CAPSULE.DR PO SCH ×2 (09:04→16:39)
[2020-10-23 12:28] VITALS: BP 177/109
[2020-10-23] MEDS ORDERED: SUCR1ORA5 PO (15:04)
[2020-10-23] MEDS ORDERED: PANT40TA3 PO (15:04)
[2020-10-23] MEDS ORDERED: NICO-587 TD (15:04)
[2020-10-23] MEDS ORDERED: HYDR-2214 PO (15:07)
== END 2020-10-23 16:51 | disposition home or self-care (01) | DRG 381 ==
LOC: ED 10:11 → EDIP 13:21 → 4EST 16:35
PROVIDERS: ADMIT Internal Medicine; ATTEND Internal Medicine
PROC: 30233N1 Transfusion of Nonautologous Red Blood Cells into Peripheral Vein, Percutaneous Approach (ICD-10-PCS; 2020-10-21)
PROC: 0DB68ZX Excision of Stomach, Via Natural or Artificial Opening Endoscopic, Diagnostic (ICD-10-PCS; 2020-10-22)
PROC: 0DB58ZX Excision of Esophagus, Via Natural or Artificial Opening Endoscopic, Diagnostic (ICD-10-PCS; principal; 2020-10-22 09:00)
DX: K22.70 Barrett's esophagus without dysplasia (principal); D62 Acute posthemorrhagic anemia; K31.5 Obstruction of duodenum; K76.6 Portal hypertension; K28.4 Chronic or unspecified gastrojejunal ulcer with hemorrhage; K31.89 Other diseases of stomach and duodenum; F17.200 Nicotine dependence, unspecified, uncomplicated; I10 Essential (primary) hypertension; K21.00 Gastro-esophageal reflux disease with esophagitis, without bleeding; Z20.822 Contact with and (suspected) exposure to COVID-19; L40.9 Psoriasis, unspecified; Z87.19 Personal history of other diseases of the digestive system; Z91.14 Patient's other noncompliance with medication regimen; Z91.19 Patient's noncompliance with other medical treatment and regimen; Z98.84 Bariatric surgery status; Z87.11 Personal history of peptic ulcer disease
CPT/HCPCS: 36415; 36430; 80048; 80053; 80061; 82140; 82728; 83540; 83550; 83735; 84100; 85014; 85018; 85025; 86850; 86900; 86923; 87635; 88305; 93005; 96374; 96375; 99285; G0378; J2704; C9113; J2270; J7030; P9016